=== PATIENT | female | born 1975 | race Caucasian/White ===

== ENCOUNTER 2021-03-12 04:10 | Emergency (ER) | payer SELFPAY ==
[~2021-03-12] VITALS: Ht 167.6 cm; Wt 131.5 kg
[2021-03-12 04:15] VITALS: BP 144/90
--- NOTE | 2021-03-12 04:18 | NUR ---
TO LOBBY A/W BED AMBULATORY
--- NOTE | 2021-03-12 05:18 | NUR ---
PT AMBULATED TO BED 08
--- NOTE | 2021-03-12 05:30 | NUR ---
PATIENT PRESENTS TO ED WITH C/O RASH . PT STATES RASH STARTED AROUND MIDNIGHT AFTER COMING HOME FROM WORK. DENIES N/V/D; AAOX4 WITH EVEN AND STEADY GAIT; HR EVEN AND REGULAR; PT DENIES ANY FEVER, CP, SOB, OR COUGH AT THIS TIME; VSS; PATIENT POSITIONED FOR COMFORT; HOB ELEVATED; BEDRAILS UP X2; BED DOWN.
[2021-03-12] MEDS ORDERED: diphenhydrAMINE 50 MG/ML VIAL ONE (05:44)
[2021-03-12] MEDS ORDERED: diphenhydrAMINE 50 MG/ML VIAL IM ONE (05:45)
[2021-03-12] MEDS ORDERED: FEXO180T82 PO (06:31)
--- NOTE | 2021-03-12 06:35 | NUR ---
Patient discharged with v/s stable. Written and verbal after care instructions given and explained BY DR. CASTANEDA. Patient alert, oriented and verbalized understanding of instructions. Ambulatory with steady gait. All questions addressed prior to discharge. ID band removed. Patient advised to follow up with PMD. Rx of LISETTE given. Patient educated on indication of medication including possible reaction and side effects. Opportunity to ask questions provided and answered.
== END 2021-03-12 06:35 | disposition home or self-care (01) ==
LOC: MED 04:10
DX: L50.9 Urticaria, unspecified (principal); Z79.899 Other long term (current) drug therapy
CPT/HCPCS: 96372; 99283; J1200